=== PATIENT | male | born 1965 | race Caucasian/White ===

== ENCOUNTER 2017-07-26 07:45 | Day surgery (SDC) | payer OTHER ==
--- NOTE | 2017-07-21 13:25 | HP ---
DATE OF ADMISSION/SURGERY: 07/26/2017 DATE OF DICTATION: 07/18/2017 REASON FOR ADMISSION: Right inguinal hernia. BRIEF HISTORY: This is a 52-year-old gentleman with 5-6 year history of having pain in the right groin region. The pain is mild and described as a discomfort. Over this time, of course, he has been slowly noticing an enlarging bump, which does not resolve. He has had no bouts of nausea or vomiting. He does have bouts of increased discomfort with prolonged standing or bending activities. PAST MEDICAL HISTORY: Patient has a history of psoriasis. He denies coronary artery disease, hypertension, diabetes. PAST SURGICAL HISTORY: Meniscal surgery in 2008. ALLERGIES: None. MEDICATIONS: None. SOCIAL HISTORY: Patient does not smoke. He drinks socially. PHYSICAL EXAMINATION: Lungs: Clear. Heart: Regular rhythm. Abdomen: Soft, nontender, nondistended. He has some psoriatic patches on his abdomen and along his face and hands. He has a large right inguinal hernia with extension in the proximal scrotum. The hernia is not reducible in the supine position. Attempt at reduction was made. However, it caused this gentleman significant pain. There is no obvious hernia left. Some laxity noted. IMPRESSION/PLAN: Right groin pain, chronically incarcerated right inguinal hernia, psoriasis. This is a 52-year-old gentleman becoming more symptomatic from an enlarging right inguinal hernia. At this point, I was unable to reduce it in the office due to significant amount of pain. I would recommend it be repaired at this time. Will plan for a laparoscopic repair of his right inguinal hernia, at the time of laparoscopy, the left side will be examined, as well. If the hernia is identified, it will be repaired. If no hernia is identified, a piece of mesh will be left in the direct inguinal space for reinforcement. Patient is noted to have psoriasis. 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 Patient understands his risks of wound infection, mesh infection are elevated due to the psoriasis and accepts the risks. Due to the size of this hernia on the right and its chronically incarcerated nature, it is more likely to develop a postoperative seroma, which may or may not resolve. This was explained to this patient. He understands the issues and still wants to proceed. Patient will be scheduled for bilateral laparoscopic inguinal herniorrhaphy with mesh. The indications, alternatives, and complications were discussed and questions answered. Written consent will be obtained the day of surgery. Sidra DRUMMOND [id number] cc: Dr. Zeb VELEZ
[2017-07-25 17:16] VITALS: BMI 26.7
[2017-07-26] MEDS ORDERED: TAMSULOSIN HCL 0.4 MG CAP.ER.24H (FP) ONE (08:39)
[2017-07-26] MEDS ORDERED: ceFAZolin SODIUM 1 GM VIAL ONE (08:39)
[2017-07-26] MEDS ORDERED: LIDOCAINE HCL/PF 2% SDV 5ML VIAL ONE (09:08)
[2017-07-26] MEDS ORDERED: ROCURONIUM BROMIDE 50 MG/5 ML VIAL ONE (09:08)
[2017-07-26] MEDS ORDERED: PROPOFOL 20 ML ONE ×2 (09:08→09:11)
[2017-07-26] MEDS ORDERED: fentaNYL CITRATE 250 MCG/5 ML VIAL ONE (09:49)
[2017-07-26] MEDS ORDERED: MIDAZOLAM HCL 2 MG/2 ML SINGLE DOSE VIAL ONE (09:49)
[2017-07-26] MEDS ORDERED: ceFAZolin SODIUM 1 GM VIAL IVPB ONE ×2 (10:12→10:13)
[2017-07-26] MEDS ORDERED: NEOSTIGMINE METHYLSULFATE 0.5 MG/ML - 10 ML MDV ONE (11:06)
[2017-07-26] MEDS ORDERED: GLYCOPYRROLATE 0.2 MG/1 ML VIAL ONE (11:06)
[2017-07-26] MEDS ORDERED: oxyCODONE HCL 5 MG TABLET PO PRN (11:29)
[2017-07-26] MEDS ORDERED: ONDANSETRON 4 MG/2 ML VIAL IVPUSH PRN (11:29)
[2017-07-26] MEDS ORDERED: LACTATED RINGERS SOLUTION 1,000 ML IV SCH (11:30)
[2017-07-26 12:37] VITALS: TEMP 98
[2017-07-26] MEDS ORDERED: oxyCODONE HCL 5 MG TABLET ONE (12:53)
--- NOTE | 2017-07-26 14:34 | OP ---
DATE OF OPERATION: 07/26/2017 PREOPERATIVE DIAGNOSIS: Chronically incarcerated large right inguinal hernia, right groin pain. POSTOPERATIVE DIAGNOSIS: Right indirect inguinal hernia (incarcerated), left indirect inguinal hernia. PROCEDURES: Laparoscopic repair of incarcerated right inguinal hernia, laparoscopic repair of left inguinal hernia, both done with mesh. SURGEON: King Mandel MD EXPRESS CLERK: Emiliano Soriano MD ANESTHESIA: Car Walter MD (general). ESTIMATED BLOOD LOSS: Minimal. SPECIMEN: None. INDICATIONS/PROCEDURE: This is a 52-year-old gentleman with a 5-year history of having pain in the right groin region. He also has a large lump in the right groin that does not completely reduce in the supine position. There is also extension of this large mass into the proximal scrotum. He is here today for an operative repair. Patient was identified and appropriately positioned on the operating room table. After placement of general anesthesia, the abdomen was prepped and draped in the usual sterile fashion with ChloraPrep. An infraumbilical incision was made deep into the subcutaneous tissues. The fascia of the rectus muscle on the right identified, divided sharply, and the muscles split. Under direct vision, a dissector balloon followed by structural balloon placed. Also, under direct vision, a suprapubic 11-mm port placed. The following structures on the right side identified, pubic tubercle, Coopers ligament, and inferior epigastric vessels, spermatic cord, and lateral abdominal wall. During this dissection, he had no direct component. He had a very large chronically incarcerated right indirect inguinal sac. A 5-mm left lower quadrant PD port placed under direct vision to facilitate reduction of this sac. The sac was reduced back in the preperitoneal space. The peritonotomy closed with clips. A 4.5 x 6 piece of Versatex mesh was keyhole placed through the suprapubic port site. The mesh was wrapped around the cord structures laterally to reconstruct the internal ring. Laterally, the mesh anchored to the anterior abdominal wall and lateral abdominal wall. Medially, the mesh anchored to the anterior abdominal wall, pubic tubercle, and Coopers ligament. Upon completion of the right side, similar structures on the left side identified. On the left side, he had no direct component. He had a small indirect inguinal sac reduced back into the preperitoneal space. Another 4.5 x 6 piece of Versatex mesh was keyhole placed through the suprapubic port site. The mesh wrapped around the cord structures laterally to reconstruct the internal ring. Laterally, the mesh anchored to the anterior abdominal wall and lateral abdominal wall. There was good overlap in the midline. In the midline, it was anchored to pubis and Coopers ligament. The preperitoneal space desufflated under direct vision. The operative field was examined, noted to be hemostatic. Ports were removed. Port sites were hemostatic. The fascia at the suprapubic and infraumbilical port sites were reapproximated with interrupted 0 Vicryl suture. All skin closed with 4-0 subcuticular Biosyn followed by Dermabond. At the conclusion of the case, sponge counts were correct. ATTESTATION: Brief operative note handwritten on the preprinted form. [facility] queried prior to giving any narcotics. Sidra DRUMMOND [id number] cc:
[2017-07-26 20:07] VITALS: BP 118/70; PULSE 70
== END 2017-07-26 20:00 | disposition home or self-care (01) ==
LOC: JASU-SURG 07:45
PROVIDERS: ATTEND Surgery
PROC: 0YUA4JZ Supplement Bilateral Inguinal Region with Synthetic Substitute, Percutaneous Endoscopic Approach (ICD-10-PCS; principal; 2017-07-26 09:00)
DX: K40.00 Bilateral inguinal hernia, with obstruction, without gangrene, not specified as recurrent (principal); K40.90 Unilateral inguinal hernia, without obstruction or gangrene, not specified as recurrent
CPT/HCPCS: 94760